=== PATIENT | female | born 1970 | race Hispanic/Latino ===

== ENCOUNTER 2017-10-18 08:26 | Day surgery (SDC) | payer BC ==
[2017-10-18] MEDS ORDERED: Ringers Lactate 1,000 ML IV ONE (08:39)
[2017-10-18] MEDS ORDERED: PROPOFOL 200 MG/20 ML VIAL IV ONE (09:23)
[2017-10-18] MEDS ORDERED: FENTANYL CITR 100 MCG/2 ML ONE ×2 (09:24→09:31)
[2017-10-18] MEDS ORDERED: MIDAZOLAM HCL 2 MG/2 ML INJ ONE (09:25)
[2017-10-18] MEDS ORDERED: LIDOCAINE 2% MPF 5 ML VIAL ONE (09:25)
[2017-10-18] MEDS ORDERED: ONDANSETRON 4 MG/2 ML VIAL ONE (09:28)
[2017-10-18] MEDS ORDERED: LIDOCAINE 1% W/EPI 1:100,000 MDV 50 ML VIAL ONE (09:53)
[2017-10-18] MEDS ORDERED: KETOROLAC 30 MG/ML INJ ONE (10:31)
--- NOTE | 2017-10-18 23:10 | OP ---
Date of Procedure: 10/18/2017 Surgeon: Opal Crowley MD Preoperative Diagnoses: Heavy menstrual bleeding, cervical polyp, possible endometrial polyp. Postoperative Diagnoses: Cervical polyp, endometrial polyp and heavy bleeding. Procedures Performed: 1.Cervical polypectomy. 2.Hysteroscopy. 3.Dilation and curettage. Anesthesia: MAC plus paracervical block. Specimens: Cervical polyp and endometrial curettings. Disposition: The patient's condition is stable. Complications: No complications. Drains: No drains. Indications: The patient is a 47-year-old who had heavy bleeding. She was referred transvaginal ult rasound showed thickened endometrium. On pelvic exam, there was a cervical polyp that was visualized . She was counseled on the need for endometrial sampling. She was consented and brought to the OR. Description Of Procedure: After informed consent was verified, she was taken back to the OR, placed in a supine fashion on the operating table. After MAC was given, she was placed in dorsal lithotomy position. Pelvic exam performed. Speculum placed to expose the cervix. Anterior lip injected with 1% lidocaine mixed with 1:100,000 epinephrine 10 cc and at the 4 and 8 o'clock positions of the cervi deann vaginal junction 5 cc each was injected. Then Allis clamps were placed on the anterior cervix. Prep x3 with Betadine was done. Cervical polyp was held with the polyp forceps and twisted and remov ed completely. The base was visualized under direct hysteroscopy through the cervical canal into the uterine cavity the polyp did not have any extension beyond the cervix. Endometrium appeared to be t hickened. Both tubal ostia visualized. No intracavitary tumors were seen. Scope removed, endometri al curettings were performed with a #3 curette. All the specimens were handed off for permanent path ology. All the instruments were removed. Instrument, needle, and sponge counts were correct. She w as recovered from anesthesia in the OR and taken to PACU in stable condition. She has a followup in 1 week and her has been called. STANISLAW/KATARZYNA Voice ID: [id number] Report ID: [id number]
== END 2017-10-18 12:15 | disposition home or self-care (01) ==
LOC: OR 08:26
PROVIDERS: ATTEND Obstetrics & Gynecology
PROC: 0UDB7ZX Extraction of Endometrium, Via Natural or Artificial Opening, Diagnostic (ICD-10-PCS; 2017-10-18)
PROC: 0UBC8ZX Excision of Cervix, Via Natural or Artificial Opening Endoscopic, Diagnostic (ICD-10-PCS; principal; 2017-10-18 10:00)
DX: N84.1 Polyp of cervix uteri (principal); N84.0 Polyp of corpus uteri; N92.0 Excessive and frequent menstruation with regular cycle; F41.9 Anxiety disorder, unspecified; I10 Essential (primary) hypertension
CPT/HCPCS: 81025; 88305; J2250; J2405; J3010

== ENCOUNTER 2017-11-15 10:21 | Day surgery (SDC) | payer BC ==
[2017-11-15] MEDS ORDERED: CEFAZOLIN/SWI 1gm 1 GM/10 ML SYR ONE (10:39)
[2017-11-15] MEDS ORDERED: Ringers Lactate 1,000 ML IV ONE (10:39)
[2017-11-15] MEDS ORDERED: PROPOFOL 200 MG/20 ML VIAL IV ONE (10:40)
[2017-11-15] MEDS ORDERED: FENTANYL CITR 100 MCG/2 ML ONE (10:41)
[2017-11-15] MEDS ORDERED: MIDAZOLAM HCL 2 MG/2 ML INJ ONE (10:41)
[2017-11-15] MEDS ORDERED: ONDANSETRON HCL 40 MG/20 ML VIAL ONE (10:42)
[2017-11-15] MEDS ORDERED: CEFAZOLIN SODIUM 1 GM/VIAL ONE (11:07)
[2017-11-15] MEDS ORDERED: CEFOXITIN/SWI 1gm 0 GM/0 ML SYR ONE (11:19)
[2017-11-15] MEDS ORDERED: KETOROLAC 30 MG/ML INJ ONE (11:44)
[2017-11-15] MEDS: MORPHINE 4 MG/ML SYR ONE ×3 (12:13→12:18)
[2017-11-15] MEDS ORDERED: HYDROCODONE/APAP 5/325 MG TAB ONE (13:07)
--- NOTE | 2017-11-15 20:53 | OP ---
Date of Procedure: 11/15/2017 Surgeon: Opal Crowley MD Preoperative Diagnosis: Heavy menstrual bleeding. Postoperative Diagnoses: Heavy menstrual bleeding and polypoid endometrium. Procedures: Hysteroscopy, dilation and curettage, and endometrial ablation with HTA. Anesthesia: General. Specimens: Endometrial curettings. Complications: None. Drains: None. Condition: The patient is stable. Description Of Procedure: The patient is a 47-year-old with heavy bleeding. Her biopsy of the endom etrium was negative. She was given options of use of an IUD versus an ablation, Depo, chose to have an ablation. She was given 1 g of Ancef in the preop and brought to the OR. After general anesthesia was given, she was placed in dorsal lithotomy position using Jaciel stirrups. Pelvic exam performed uterus enlarged, mobile, no adnexal masses. Prep x3 with Betadine was done in the vulva, vagina, and perineal area. Speculum was placed to expos e the cervix. Anterior lip grasped with 2 Allis clamps, then dilated to 18-Cambodian. The HTA sheath w as primed and a 30-degree lens was used along with this to enter the uterine cavity. Once the cavity was entered, there was polypoid endometrium all over, so we took the hysteroscope out and did endome trial curettage with a #3 curette. Then, the scope was reintroduced and the cavity rinsed. The cavi ty integrity test was done when the tip of the scope was positioned in the mid to upper part of the e ndometrial canal after hooking the Allis clamp on the anterior lip to the sheath and placing 2 Ray-Te cs in the posterior fornix to pack in with the speculum in place. After the cavity integrity test was passed without any problems, then the normal heating cycle, 10 mi nute ablation cycle, and 1.5 minutes cooling cycle were conducted without any interruption. Once thi s was done, thorough irrigation with diagnostic hysteroscopy, and then pictures were taken of the abl ation effect. There was excellent ablation global effect. The scope was removed after rinsing of th e cavity 1 more time. Instrument, needle, and sponge counts were done and were correct at the case. The vaginal packing from the posterior fornix was removed and the counts correct. She will follow u p with me in 3 weeks for ablation followup. SK/KATARZYNA Voice ID: [id number] Report ID: [id number]
== END 2017-11-15 13:45 | disposition home or self-care (01) ==
LOC: OR 10:21
PROVIDERS: ATTEND Obstetrics & Gynecology
PROC: 0U5B8ZZ Destruction of Endometrium, Via Natural or Artificial Opening Endoscopic (ICD-10-PCS; principal; 2017-11-15 11:30)
PROC: 0UDB7ZX Extraction of Endometrium, Via Natural or Artificial Opening, Diagnostic (ICD-10-PCS; 2017-11-15 11:30)
DX: N92.0 Excessive and frequent menstruation with regular cycle (principal); N84.0 Polyp of corpus uteri; I10 Essential (primary) hypertension; G47.30 Sleep apnea, unspecified; F41.9 Anxiety disorder, unspecified; F90.9 Attention-deficit hyperactivity disorder, unspecified type; Z80.9 Family history of malignant neoplasm, unspecified; Z82.49 Family history of ischemic heart disease and other diseases of the circulatory system
CPT/HCPCS: 81025; 88305; J0690; J2250; J2405; J3010

== ENCOUNTER → 2021-09-13 | Day surgery (SDC) | payer BC ==
--- NOTE | 2021-09-14 13:03 | RAD REPORT ---
EXAM DESCRIPTION: US - Follow Up Breast [facility] - 09/13/2021 10:58 am CLINICAL HISTORY: Right breast lesion, pre scan prior to biopsy COMPARISON: Ultrasound from 07/07/2021 FINDINGS: Ultrasound was performed prior to initiating the biopsy. The previously noted indeterminat e lesion in the right breast that was classified as a BI-RADS 3 appears to be completely cystic on to day's ultrasound. The lesion measures 6 millimeters and has definite increased through transmission i n keeping with a simple cyst. No suspicious imaging features. IMPRESSION: 1. The probably benign lesion in the right breast is consistent with a simple cyst. No a dditional follow-up is required. No biopsy performed 2. BI-RAD: 2 Benign findings 3. Recommendation: Return to routine annual mammogram. The right breast lesion is a simple cyst. ResultCode: B
== END ==
LOC: DS 10:00
PROVIDERS: ATTEND Surgery
DX: N63.11 Unspecified lump in the right breast, upper outer quadrant (principal)
CPT/HCPCS: 76642